=== PATIENT | female | born 1950 | race Caucasian/White ===

== ENCOUNTER 2018-08-02 15:09 | Emergency (ER) | payer MEDICARE, BC ==
[2018-08-02 15:34] VITALS: BP 141/68
--- NOTE | 2018-08-02 15:50 | UC ---
UC General HPI - HPI Summary HPI Summary: pt itched her L forearm wednesday. the next day, he area was red and is spreading. she squeezed a drop of puss from site at onset but none now. no hx MRSA, DM. - History of Current Complaint Chief Complaint: [place] Stated Complaint: LEFT ARM SKIN CONCERN Time Seen by Provider: 08/02/18 15:26 Hx Obtained From: Patient Hx Last Menstrual Period: n/a Onset/Duration: Gradual Onset Timing: Constant Pain Intensity: 0 Associated Signs & Symptoms: Negative: Fever - Allergy/Home Medications Allergies/Adverse Reactions: Allergies Allergy/AdvReac Type Severity Reaction Status Date / Time acetaminophen [From Vicodin] Allergy Nausea And Verified 08/02/18 15:28 Vomiting hydrocodone [From Vicodin] Allergy Nausea And Verified 08/02/18 15:28 Vomiting oxycodone Allergy Vomiting Verified 08/02/18 15:28 PMH/Surg Hx/FS Hx/Imm Hx Endocrine History: Dyslipidemia Cardiovascular History: Hypertension - Surgical History Surgical History: Yes Surgery Procedure, Year, and Place: C SECTION, ANAL FISSURE REPAIR. HYSTERECTOMY OCT 2016 - Family History Known Family History: Positive: Hypertension - Social History Occupation: Employed Part-time Alcohol Use: None Substance Use Type: None Smoking Status (MU): Never Smoked Tobacco - Immunization History Most Recent Tetanus Shot: JUN 2018 Vaccination Up to Date: Yes Review of Systems All Other Systems Reviewed And Are Negative: Yes Constitutional: Positive: Negative Skin: Positive: Negative Eyes: Positive: Negative ENT: Positive: Negative Respiratory: Positive: Negative Cardiovascular: Positive: Negative Gastrointestinal: Positive: Negative Genitourinary: Positive: Negative Motor: Positive: Negative Neurovascular: Positive: Negative Musculoskeletal: Positive: Negative Neurological: Positive: Negative Psychological: Positive: Negative Physical Exam Triage Information Reviewed: Yes Appearance: Well-Appearing Vital Signs: Initial Vital Signs Temp 97.5 F 08/02/18 15:28 Pulse 92 08/02/18 15:28 Resp 16 08/02/18 15:28 BP 141/68 08/02/18 15:28 Pulse Ox 98 08/02/18 15:28 Vital Signs Reviewed: Yes Eyes: Positive: Conjunctiva Clear ENT: Positive: Normal ENT inspection Neck: Positive: Supple, Nontender, No Lymphadenopathy Respiratory: Positive: Lungs clear, Normal breath sounds Cardiovascular: Positive: RRR, No Murmur Abdomen Description: Positive: Nontender, No Organomegaly, Soft Bowel Sounds: Positive: Present Musculoskeletal: Positive: ROM Intact Neurological: Positive: Alert Psychological: Positive: Age Appropriate Behavior Skin Exam: Normal, Other - cm cm area of erythema, warmth and slight swelling L forearm with central abrasion. No streaking or LUE adenopathy. LUE has full s/v/ m function. Course/Dx - Differential Dx - Multi-Symptom Provider Diagnoses: Cellulitis L forearm Discharge - Sign-Out/Discharge Documenting (check all that apply): Patient Departure All imaging exams completed and their final reports reviewed: No Studies - Discharge Plan Condition: Stable Disposition: HOME Prescriptions: Cephalexin CAP* [Keflex CAP*] 500 mg PO TID 10 Days #30 cap Patient Education Materials: Cellulitis (DC) Referrals: Farhana Ledbetter PA [Primary Care Provider] - 3 Days - Billing Disposition and Condition Condition: STABLE Disposition: Home
== END 2018-08-02 15:55 | disposition home or self-care (01) ==
LOC: UCCORT 15:09
DX: L03.114 Cellulitis of left upper limb (principal); I10 Essential (primary) hypertension; Z88.5 Allergy status to narcotic agent
CPT/HCPCS: 99212; G0463